=== PATIENT | male | born 1980 | race African-American/Black ===

== ENCOUNTER 2016-06-20 23:43 | Emergency (ER) | payer SELFPAY ==
[~2016-06-20] VITALS: Ht 185.4 cm; Wt 72.6 kg
[2016-06-20] MEDS ORDERED: NKM (23:56)
[2016-06-21] MEDS ORDERED: Norco 5mg/325mg tab ORAL ONE (00:30)
--- NOTE | 2016-06-21 01:37 | Emergency Room Report ---
History of Present Illness General Chief Complaint: Multiple Trauma/Fall Source: Patient Present Illness HPI Is a 35-year-old male with no past medical history. He presents with double pain. Onset was acute. He was skateboarding and fell directly to his blood. This occurred about an hour prior to arrival. Pain is 10 out of 10. Worse with movement. Worse with palpation. Did not pass out. No head injury. Allergies: Coded Allergies: No Known Allergies (Unverified , 06/20/16) Patient History Past Medical History: see triage record, old chart reviewed Past Surgical History: none Pertinent Family History: none Social History: Denies: alcohol use Immunizations: other Reviewed Nursing Documentation: PMH: Agreed, PSxH: Agreed Nursing Documentation-PMH Past Medical History: No Stated History Review of Systems Eye: Denies: blurred vision, eye pain ENT: Denies: ear pain, nose congestion, throat swelling Respiratory: Denies: cough, shortness of breath Cardiovascular: Denies: chest pain, palpitations Gastrointestinal: Denies: abdominal pain, diarrhea, nausea, vomiting Musculoskeletal: Denies: back pain, joint pain Skin: Denies: rash Neurological: Denies: headache, numbness Endocrine: Denies: increased thirst, increased urine Hematologic/Lymphatic: Denies: easy bruising All Other Systems: negative except mentioned in HPI Physical Exam Vital Signs Date Time Temp Pulse Resp B/P Pulse Ox O2 Delivery O2 Flow Rate FiO2 06/20/16 23:52 98.6 73 18 112/73 97 Room Air vitals normal Sp02 EP Interpretation: reviewed, normal General Appearance: well appearing, no apparent distress, alert Head: normocephalic, atraumatic Eyes: bilateral eye EOMI, bilateral eye PERRL ENT: hearing grossly normal, normal pharynx Neck: full range of motion, supple, no meningismus Respiratory: chest non-tender, lungs clear, normal breath sounds Cardiovascular #1: regular rate, rhythm, no murmur Gastrointestinal: normal bowel sounds, non tender, no mass, no organomegaly, no bruit, non-distended Rectal: other - Tender to palpation over coccyx. No lumbar or sacral tenderness. No ecchymosis. Musculoskeletal: back normal, gait/station normal, normal range of motion Psychiatric: mood/affect normal Skin: warm/dry Medical Decision Making Diagnostic Impression: Primary Impression: Coccyx contusion Qualified Codes: S30.0XXA - Contusion of lower back and pelvis, initial encounter ER Course Patient with coccygeal contusion. No fracture. No spinal injury. We'll discharge home. Other X-Ray Diagnostic Results Other X-Ray Diagnostic Results : X-Ray Ordered: Coccyx x-ray Date: Jun 21, 2016 Time: 01:56 EP Interpretation: Yes Findings: no fractures, no dislocation, no soft tissue swelling Number of Views: 3 Last Vital Signs Date Time Temp Pulse Resp B/P Pulse Ox O2 Delivery O2 Flow Rate FiO2 06/21/16 01:31 98.6 06/20/16 23:52 73 18 112/73 97 Room Air Status: improved Disposition: HOME, SELF-CARE Condition: Stable Scripts Ibuprofen* (MOTRIN*) 600 Mg Tablet 600 MG ORAL THREE TIMES A DAY, #30 TAB 0 Refills Prov: TJ ABRAMS M.D. 06/21/16 Additional Instructions: Followup with your Dr. in 7 days. Return if symptom worsen. TJ ABRAMS M.D. Jun 21, 2016 01:37
[2016-06-21] MEDS ORDERED: IBUPROFEN600 MG ORAL (01:56)
[2016-06-21 02:04] VITALS: BP 118/72
--- NOTE | 2016-06-22 08:36 | Diagnostic Imaging Report ---
History: Pain status post fall. Technique: Frontal and lateral views of the coccyx are provided. Comparison: No prior study is available for comparison. Findings: Overall bony mineralization is within normal limits. Sacral spine alignment appears preserved. There is no evidence of acute fracture or subluxation. Impression: No evidence of acute fracture or subluxation.
== END 2016-06-21 02:30 | disposition home or self-care (01) ==
LOC: EMR 06-21 02:09
DX: S30.0XXA Contusion of lower back and pelvis, initial encounter (principal); W19.XXXA Unspecified fall, initial encounter; Y93.51 Activity, roller skating (inline) and skateboarding; Y92.9 Unspecified place or not applicable
CPT/HCPCS: 72220; 99283